=== PATIENT | male | born 1995 | race Caucasian/White ===

== ENCOUNTER 2016-07-14 10:45 | Emergency (ER) | payer OTHER | END 2016-07-14 12:30 | disposition home or self-care (01) | LOC: ER1 10:45 | DX: S61.412A Laceration without foreign body of left hand, initial encounter (principal); Z23 Encounter for immunization; W26.0XXA Contact with knife, initial encounter; Y92.69 Other specified industrial and construction area as the place of occurrence of the external cause; Y99.0 Civilian activity done for income or pay | CPT/HCPCS: 12001; 90471; 90715; 99282 ==